=== PATIENT | male | born 1960 | race Caucasian/White ===

== ENCOUNTER 2019-10-13 12:00 | Outpatient (CLI) | payer OTHER ==
[2019-10-13 13:00] VITALS: BP 136/88
[2019-10-13] MEDS ORDERED: FILTER 1.2 MICRON (ADULT TPN/MANNITOL/REMICADE) XX ONE (13:45)
[2019-10-13] MEDS ORDERED: ACETAMINOPHEN 650MG PO PRIOR TO INFUSION PO ONE (13:45)
[2019-10-13] MEDS ORDERED: NS 1,000 ML IV SCH (13:45)
[2019-10-13] MEDS ORDERED: METO1TAB87 PO (14:06)
[2019-10-13] MEDS ORDERED: LISI10TA4 PO (14:06)
[2019-10-13] MEDS ORDERED: META1TAB22 PO (14:06)
[2019-10-13] MEDS ORDERED: ASPI81TA85 PO (14:06)
[2019-10-13] MEDS ORDERED: IBUP-1114 PO (14:06)
[2019-10-13] MEDS ORDERED: SULF50TA PO (14:06)
[2019-10-13] MEDS ORDERED: INFLIXIMAB BIOSIMILAR 400 MG in NS 210 ML IV ONE (14:30)
== END 2019-10-13 16:45 | disposition home or self-care (01) ==
LOC: M INFU 12:00
PROVIDERS: ATTEND Nurse Practitioner
DX: M46.99 Unspecified inflammatory spondylopathy, multiple sites in spine (principal); Z88.0 Allergy status to penicillin; Z88.8 Allergy status to other drugs, medicaments and biological substances; Z91.040 Latex allergy status
CPT/HCPCS: 96413; 96415; Q5103

== ENCOUNTER → 2020-05-11 | Outpatient (REF) | payer OTHER ==
[~2020-05-11] MED LIST: ASPI81TA85 PO; IBUP-1114 PO; LISI10TA4 PO; META1TAB22 PO; METO1TAB87 PO; SULF500T41 PO
== END ==
LOC: M LAB REF 17:16
PROVIDERS: ATTEND Physician Assistant
DX: C44.519 Basal cell carcinoma of skin of other part of trunk (principal)

== ENCOUNTER → 2022-05-10 | Outpatient (REF) | payer BC ==
[~2022-05-10] MED LIST changes: -ASPI81TA85 PO; +ASPI81TA86 PO; +LISI10TA22 PO; -LISI10TA4 PO
== END ==
LOC: M SFHCDERM 14:08
PROVIDERS: ATTEND Physician Assistant
DX: L82.1 Other seborrheic keratosis (principal); D48.0 Neoplasm of uncertain behavior of bone and articular cartilage

== ENCOUNTER 2024-04-17 06:10 | Day surgery (SDC) | payer BC ==
[~2024-04-17] VITALS: Ht 180.3 cm; Wt 99.2 kg
[~2024-04-17 06:10] MED LIST changes: +ECOT81TA5 PO; +HYDR200T46 PO; +LOSA100T46 PO; +METRCRM; +PANT40TA29 PO; +PRED1TABL PO; +SERT25TA21 PO; +VITA100093 PO
[2024-04-17] MEDS: LR 1,000 ML IV SCH (07:12)
[2024-04-17] MEDS ORDERED: propofoL 500 MG/50 ML VIAL As Ordered ONE (07:13)
[2024-04-17] MEDS ORDERED: LIDOCAINE 2% 100MG/5ML SDV (FOR ANES.) As Ordered ONE (07:13)
[2024-04-17] MEDS ORDERED: MIDAZOLAM INJ 2MG/2ML VIAL As Ordered ONE (07:13)
[2024-04-17] MEDS ORDERED: fentaNYL 100 MCG/2 ML INJECTION As Ordered ONE (07:13)
[2024-04-17] MEDS: ceFAZolin SOD 2 GM in IV 1 EA IV ONE (07:33)
[2024-04-17] MEDS ORDERED: ACETAMINOPHEN 1000MG 100ML IV BAG As Ordered ONE (07:49)
[2024-04-17] MEDS ORDERED: KETOROLAC 60MG 2ML VIAL As Ordered ONE (07:49)
[2024-04-17] MEDS: LIDOCAINE 2% MDV 20ML VIAL As Ordered ONE (08:08)
[2024-04-17] MEDS ORDERED: propofoL 200 MG/20 ML VIAL As Ordered ONE (08:20)
[2024-04-17] MEDS: GENTAMICIN SULF 80MG/2ML VIAL As Ordered ONE (08:42)
[2024-04-17 11:00] VITALS: BP 139/84; TEMP 97.5; O2SAT 97
== END 2024-04-17 11:06 | disposition home or self-care (01) ==
LOC: M SDC 06:10
PROVIDERS: ATTEND Podiatrist
DX: M20.22 Hallux rigidus, left foot (principal); G47.30 Sleep apnea, unspecified; Z91.040 Latex allergy status; Z88.8 Allergy status to other drugs, medicaments and biological substances; Z88.0 Allergy status to penicillin; Z79.899 Other long term (current) drug therapy
CPT/HCPCS: 28750; 73630; 76000; 88300; C1713; C1769; J0131; J0665; J0690; J1100; J1580; J1885; J2250; J3010

== ENCOUNTER → 2024-05-21 | Outpatient (REF) | payer BC | LOC: M SFHCRHEU 14:21 | PROVIDERS: ATTEND Internal Medicine | DX: E55.9 Vitamin D deficiency, unspecified (principal); Z53.9 Procedure and treatment not carried out, unspecified reason ==

== ENCOUNTER → 2024-10-23 | Outpatient (REF) | payer BC ==
[~2024-10-23] MED LIST changes: +META-10 PO; -META1TAB22 PO
== END ==
LOC: M SFHCRHEU 11:35
PROVIDERS: ATTEND Internal Medicine
DX: Z79.899 Other long term (current) drug therapy (principal)

== ENCOUNTER → 2025-07-29 | Outpatient (REF) | payer BC ==
[~2025-07-29] MED LIST changes: +PRED-1142 PO; -PRED1TABL PO
== END ==
LOC: M SFHCRHEU 12:37
PROVIDERS: ATTEND Internal Medicine
DX: Z53.9 Procedure and treatment not carried out, unspecified reason (principal)